=== PATIENT | male | born 1980 | race Caucasian/White ===

== ENCOUNTER 2025-04-20 05:36 | Emergency (ER) | payer OTHER ==
[~2025-04-20] VITALS: Ht 170.2 cm; Wt 109.0 kg
[2025-04-20 06:05] VITALS: TEMP 36.9; O2SAT 98
[2025-04-20] MEDS ORDERED: SULF1TAB48 MT (06:29)
[2025-04-20] MEDS ORDERED: CEPH500C2 MT (06:29)
[2025-04-20] MEDS: LIDOCAINE HCL 1% 20ML VIAL INFIL ONE (06:39)
[2025-04-20 07:21] VITALS: BP 166/100; PULSE 94; RESP 14; O2SAT 95
== END 2025-04-20 07:23 | disposition home or self-care (01) ==
LOC: ER 05:36
DX: L02.415 Cutaneous abscess of right lower limb (principal); F31.9 Bipolar disorder, unspecified
CPT/HCPCS: 99284; 10060; 76882; J2003